=== PATIENT | female | born 1965 | race Caucasian/White ===

== ENCOUNTER 2022-06-06 10:37 | Outpatient (CLI) | payer BC | END 2022-06-06 23:59 | disposition home or self-care (01) | LOC: RAD 10:37 | PROVIDERS: ATTEND Surgery | DX: K44.9 Diaphragmatic hernia without obstruction or gangrene (principal) | CPT/HCPCS: 74220 ==

== ENCOUNTER 2022-07-04 07:04 | Observation (INO) | payer BC ==
[2022-06-30 12:23] LABS: BASOPHILS % (AUTO) 0.4 % (0-1); EOSINOPHILS # (AUTO) 0.2 X10'3 (0-0.9); EOSINOPHILS % (AUTO) 3.1 % (0-6); LYMPHOCYTES # (AUTO) 0.8 X10'3 (1.1-4.8); LYMPHOCYTES % (AUTO) 15.3 % (21-51); MEAN CORPUSCULAR HEMOGLOBIN 31.1 PG (27.0-31.0); MEAN CORPUSCULAR HGB CONC 34.4 g/dL (33.0-36.5); MEAN CORPUSCULAR VOLUME 90.4 FL (78-98); MEAN PLATELET VOLUME 8.4 FL (7.4-10.4); MONOCYTES # (AUTO) 0.5 X10'3 (0-0.9); MONOCYTES % (AUTO) 8.7 % (2-12); NEUTROPHILS % (AUTO) 72.5 % (42-75); PRE OP HEMATOCRIT 38.3 % (35.0-45.0); PRE OP HEMOGLOBIN 13.2 g/dL (12.0-16.0); PRE OP PLATELET COUNT 200 X10'3 (140-440); RED BLOOD COUNT 4.24 X10'6 (4.20-5.60); RED CELL DISTRIBUTION WIDTH 13.7 % (11.5-14.5)
[2022-06-30 12:38] LABS: ALBUMIN 3.7 G/DL (3.4-5.0); ALKALINE PHOSPHATASE 84 IU/L (46-116); BLOOD UREA NITROGEN 16 MG/DL (7-18); BUN/CREATININE RATIO 19.3 (10.0-20.0); CHLORIDE 106 MMOL/L (99-107); CREATININE 0.83 MG/DL (0.40-0.90); PRE OP ALT 36 U/L (30-65); PRE OP ANION GAP 7 (8-16); PRE OP AST 30 U/L (10-37); PRE OP BILIRUB, TOTAL 0.4 MG/DL (0.0-1.0); PRE OP GLUCOSE 91 MG/DL (70-104); PRE OP POTASSIUM 4.1 MMOL/L (3.4-5.1); PRE OP SODIUM 142 MMOL/L (135-145); TOTAL CARBON DIOXIDE 29.5 MMOL/L (24-32); TOTAL PROTEIN 7.5 G/DL (6.4-8.2); eGFR 70 ML/MIN
[~2022-07-04] VITALS: Ht 167.6 cm; Wt 108.0 kg
[2022-07-04] VITALS (17 sets, daily range): BP systolic 114–134; BP diastolic 67–81
[~2022-07-04 07:04] MED LIST: ALBU6.7H14 INH; AMLODIPINE PO; ATORVAST PO; BIOT1CAP3 PO; BUPR300T53 PO; BUSP5TAB3 PO; CRAN400T3 PO; CYAN50009 PO; D-MA500C PO; DEXL60CA3 PO; LACT1CAP65 PO; LORA-269 PO; LYSI500T11 PO; MAGN100T6 PO; MONT-40 PO; POME250C2 PO; cefazolin 2gm/D5W 100mL 100 ML IV ONE; famotidine 20mg tablet PO ONE; ringers solution, lacted 1,000 ML IV SCH
[2022-07-04] MEDS ORDERED: BUPIVAcaine/PF 2.5 mg/ml (0.25%) 30ml vial ONE (09:12)
[2022-07-04] MEDS ORDERED: LIDOcaine 1% 30ml preserv. free vial ONE (09:12)
[2022-07-04] MEDS ORDERED: midazolam 1 mg/ML 2ml injection ONE (09:38)
[2022-07-04] MEDS ORDERED: fentaNYL/PF 50MCG/1 ML 2ML syringe ONE ×2 (09:38→10:09)
[2022-07-04] MEDS ORDERED: neostigmine methylsulfate 1 MG/ML 10ml vial ONE (09:40)
[2022-07-04] MEDS ORDERED: glycopyrrolate 0.2mg/ml inj ONE (09:40)
[2022-07-04] MEDS ORDERED: sevoflurane 250ml liquid IH ONE (09:40)
[2022-07-04] MEDS ORDERED: acetaminophen 1,000mg/100ml IV 100 ML IV ONE (09:55)
[2022-07-04] MEDS ORDERED: proCHLORperazine 10 MG/2 ml inj IV PRN (10:00)
[2022-07-04] MEDS ORDERED: BUPIVAcaine/PF 2.5 mg/ml (0.25%) 30ml vial IJ ONE (10:00)
[2022-07-04] MEDS ORDERED: ondansetron/PF 4mg/2ml inj IV PRN (10:00)
[2022-07-04] MEDS ORDERED: morphine 2 MG/ML inj. syringe IV PRN (10:00)
[2022-07-04] MEDS ORDERED: meperidine/PF 25mg/ml syringe IV PRN ×3 (10:00)
[2022-07-04] MEDS ORDERED: morphine 4 MG/ML inj SYRINge IV PRN (10:00)
[2022-07-04] MEDS ORDERED: LIDOcaine 1% 30ml preserv. free vial IJ ONE (10:00)
[2022-07-04] MEDS ORDERED: ringers solution, lacted 1,000 ML IV SCH (10:00)
[2022-07-04] MEDS ORDERED: LIDOcaine 2% (20mg/ml) 5ml vial ONE (10:09)
[2022-07-04] MEDS ORDERED: rocuronium 10mg/ml inj IV ONE ×2 (10:09→10:44)
[2022-07-04] MEDS ORDERED: propofol inj 20 ML IV ONE (10:09)
[2022-07-04] MEDS ORDERED: ondansetron/PF 4mg/2ml inj ONE (10:09)
[2022-07-04] MEDS ORDERED: dexamethasone sod phosphate 4mg/ml inj. ONE (10:09)
[2022-07-04] MEDS ORDERED: ePHEDrine 50MG/ML INJ. ONE (10:57)
--- NOTE | 2022-07-04 12:05 | NUR ---
Received from OR via bed, accompanied by Anesthesiologist Dr Villar and report given by Anesthesiologist and NURSE ANESTHETIST. Pt drowsy, denies pain. Abdomen w/3 lap sites w/dermabond CDI. Addendum: 07/04/22 at 1244 by Casi Valenzuela RN Amended: Links added.
[2022-07-04] MEDS ORDERED: naloxone 0.4 mg/ml inj IV PRN (12:20)
[2022-07-04] MEDS ORDERED: normal saline 1000ml 1,000 ML IV SCH (12:20)
[2022-07-04] MEDS ORDERED: albuterol 2.5 MG/3 ML nebule NEB PRN (12:25)
[2022-07-04] MEDS ORDERED: LORazepam 1 MG tablet PO PRN (12:25)
[2022-07-04] MEDS ORDERED: LORazepam 0.5 MG tablet PO PRN (12:39)
[2022-07-04] MEDS: HYDROmorph/NS 0.2 mg/ml PCA 100 ML IV SCH ×7 (13:00→22:30)
--- NOTE | 2022-07-04 13:45 | NUR ---
Report called to receiving nurse. Transferred via BED, 2 BAGS OF Belongings SENT W/PT TO ROOM 345A. BLL, CALL LIGHT GIVEN, SIDE RAILS UP X 4. RECEIVING RN AT BEDSIDE TO RECEIVE PT. Special Issues communicated to receiving nurse. YES. Addendum: 07/04/22 at 1409 by Casi Valenzuela RN Amended: Links added.
--- NOTE | 2022-07-04 13:53 | NUR ---
Received pt with LOCK INSTALLER pump from [facility]. 0.4mg given, 2/3 attempts. Asked if 2 RNs needed to s/o, 2 RNs stated to "make a note". Addendum: 07/04/22 at 1444 by Jennifer Tinsley RN Pt arrived on unit from PACU @ 1400 with post ops VS completed. Addendum: 07/04/22 at 1444 by Jennifer Tinsley RN NS started at 1445 Addendum: 07/04/22 at 1820 by Jennifer Tinsley RN [id number] LOCK INSTALLER pump delivered 1.6mg with 11/12 demands
[2022-07-04] MEDS: ondansetron/PF 4mg/2ml inj IV PRN (18:47)
[2022-07-04] MEDS ORDERED: montelukast 10mg tablet PO SCH (21:00)
[2022-07-04] MEDS: heparin, porcine 5000 units/ml vial SQ SCH (21:09)
[2022-07-05] MEDS: ondansetron/PF 4mg/2ml inj IV PRN ×2 (00:50→08:32)
[2022-07-05] MEDS: HYDROmorph/NS 0.2 mg/ml PCA 100 ML IV SCH ×3 (00:56→05:00)
[2022-07-05 02:00] VITALS: BP 115/68
[2022-07-05 06:22] LABS: BASOPHILS % (AUTO) 0.1 % (0-1); EOSINOPHILS % (AUTO) 0 % (0-6); HEMATOCRIT 35.4 % (35.0-45.0); HEMOGLOBIN 12.2 g/dl (12.0-16.0); LYMPHOCYTES # (AUTO) 0.3 X10'3 (1.1-4.8); LYMPHOCYTES % (AUTO) 3.8 % (21-51); MEAN CORPUSCULAR HEMOGLOBIN 31.1 PG (27.0-31.0); MEAN CORPUSCULAR HGB CONC 34.5 g/dL (33.0-36.5); MEAN CORPUSCULAR VOLUME 90.1 FL (78-98); MEAN PLATELET VOLUME 8.3 FL (7.4-10.4); MONOCYTES # (AUTO) 0.7 X10'3 (0-0.9); MONOCYTES % (AUTO) 7.8 % (2-12); NEUTROPHILS # (AUTO) 7.7 X10'3 (1.8-7.7); NEUTROPHILS % (AUTO) 88.3 % (42-75); PLATELET COUNT 199 X10'3 (140-440); RED BLOOD COUNT 3.93 X10'6 (4.20-5.60); RED CELL DISTRIBUTION WIDTH 13.5 % (11.5-14.5); WHITE BLOOD COUNT 8.7 X10'3 (4.5-11.0)
[2022-07-05 06:26] LABS: ALBUMIN 3.2 G/DL (3.4-5.0); ANION GAP 7 (8-16); BLOOD UREA NITROGEN 14 MG/DL (7-18); BUN/CREATININE RATIO 18.7 (10.0-20.0); CALCIUM 9.1 MG/DL (8.5-10.1); CHLORIDE 103 MMOL/L (99-107); CREATININE 0.75 MG/DL (0.40-0.90); GLUCOSE 117 MG/DL (70-104); POTASSIUM 4.5 MMOL/L (3.5-5.1); SODIUM 136 MMOL/L (135-145); eGFR 79 ML/MIN
--- NOTE | 2022-07-05 06:49 | NUR ---
Problems reprioritized. Patient report given, questions answered & plan of care reviewed with TAYLER BARRY.
[2022-07-05 07:00] VITALS: BP 120/78
[2022-07-05] MEDS ORDERED: oxyCODONE/APAP 5-325mg tablet PO PRN (07:45)
[2022-07-05] MEDS ORDERED: buproprion 150mg XL (24-hour) tablet PO SCH (08:00)
[2022-07-05] MEDS ORDERED: busPIRone 5mg tablet PO SCH (08:00)
[2022-07-05] MEDS ORDERED: amLODIPine 5mg tablet PO SCH (08:00)
[2022-07-05] MEDS ORDERED: atorvastatin 10mg tablet PO SCH (08:00)
[2022-07-05] MEDS: heparin, porcine 5000 units/ml vial SQ SCH (09:20)
[2022-07-05] MEDS ORDERED: buPROPion SR 150mg tablet PO SCH (10:33)
[2022-07-05] MEDS ORDERED: PCA WASTE DOCUMENTATION 1 MG ML MC ONE (10:45)
[2022-07-05 11:00] VITALS: BP 122/71
[2022-07-05] MEDS ORDERED: ACET-1008 PO (14:13)
--- NOTE | 2022-07-05 16:20 | NUR ---
Patient stable and appropriate for discharge home with . IV removed. RX e-scripted to preferred pharmacy. All discharge instructions and education given and reviewed with patient, all questions answered.
--- NOTE | 2022-07-05 17:36 | NUR ---
Nutrition Consult: Pt s/p Ana fundoplication surgeon requests nutrition ed. Pt/SO seen by RD at bedside for written/verbal post-Ana diet ed w/ RD contact information and Ensure coupons provided. RD reviewed diet progression, consistency, and ONS/MVI coverage to maintain optimal nutrition status while on full liquids diet at home next two weeks per surgeon recommendations. RD encouraged pt/SO to contact dietitian's office if further nutrition questions/concerns. Addendum: 07/05/22 at [address] Amended: Links added.
== END 2022-07-05 17:04 | disposition home or self-care (01) ==
LOC: PRE-OP 07:04 → PAS IN 12:22 → SUR 3N 12:23
PROVIDERS: ADMIT Surgery; ATTEND Surgery
DX: K44.9 Diaphragmatic hernia without obstruction or gangrene (principal); J45.909 Unspecified asthma, uncomplicated; G47.30 Sleep apnea, unspecified; I10 Essential (primary) hypertension; K21.9 Gastro-esophageal reflux disease without esophagitis; M19.90 Unspecified osteoarthritis, unspecified site; F41.9 Anxiety disorder, unspecified; Z85.3 Personal history of malignant neoplasm of breast; Z79.899 Other long term (current) drug therapy
CPT/HCPCS: 36415; 43282; 71045; 80048; 80053; 82948; 85025; 93005; 96365; 96366; 96372; 96375; 96376; C1781; G0378; J0131; J0690; J1100; J1170; J1644; J2175; J2250; J2405; J2704; J2710; J3010; J3490; J7030; J7120; S2900; A4615; A4618